=== PATIENT | female | born 1975 | race Caucasian/White ===

== ENCOUNTER → 2017-12-22 | Outpatient (CLI) | payer OTHER ==
--- NOTE | 2017-12-22 19:51 | Diagnostic Imaging Report ---
EXAMINATION: Digital mammogram bilateral screening. INDICATION: Screening. The current study was also evaluated with a Computer Aided Detection (CAD) system. 3-D tomosynthesis was also performed and reviewed. This is the patient's baseline study. At this time, there are no current complaints. FINDINGS: The fibroglandular tissue in both breasts is heterogeneously dense. This does limit the sensitivity of this exam. There is no primary or secondary sign of malignancy noted. IMPRESSION: 1. There is no evidence of malignancy. 2. The patient should have her annual bilateral screening mammogram on schedule in November of 2018. ACR BI-RADS Category 1: Negative. Result letter will be mailed to the patient. Note: At least 10% of breast cancer is not imaged by mammography. Dictated by: Dictated on workstation # [id number]
== END ==
LOC: RAD 07:38
PROVIDERS: ATTEND Nurse Practitioner
DX: Z12.31 Encounter for screening mammogram for malignant neoplasm of breast (principal)
CPT/HCPCS: 77067

== ENCOUNTER → 2020-07-14 | Outpatient (CLI) | payer OTHER ==
--- NOTE | 2020-07-14 12:34 | Diagnostic Imaging Report ---
INDICATION: Routine screening. COMPARISON: 12/22/2017. TECHNIQUE: 2D and 3D bilateral screening mammography was performed with CAD. FINDINGS: Scattered fibroglandular densities are identified bilaterally. No mass or malignant appearing microcalcifications are seen. The axillae are unremarkable. IMPRESSION: No mammographic features suspicious for malignancy are identified. ACR BI-RADS Category 1: Negative. Result letter will be mailed to the patient. Note: At least 10% of breast cancer is not imaged by mammography. Dictated by: Dictated on workstation # [id number]
== END ==
LOC: RAD 09:15
PROVIDERS: ATTEND Obstetrics & Gynecology
DX: Z12.31 Encounter for screening mammogram for malignant neoplasm of breast (principal)
CPT/HCPCS: 77063; 77067

== ENCOUNTER → 2021-08-17 | Outpatient (CLI) | payer OTHER ==
[~2021-08-17] MED LIST: CATHETER FLUSH 10 ML SYR IVP PRN
--- NOTE | 2021-08-17 09:41 | Diagnostic Imaging Report ---
INDICATION: Right upper quadrant pain for several years. Patient was administered 5.4 mCi technetium 99m Choletec intravenously and imaging over the abdomen was performed. At 60 minutes, the patient ingested Ensure and the gallbladder ejection fraction was calculated. There is homogeneous uptake of activity by the liver with prompt excretion of activity into the common duct with passage of activity into the gallbladder. There is also passage of activity into the small bowel. Gallbladder ejection fraction is low at 24%. Normal values are 35% or greater. IMPRESSION: 1. Patent cystic duct and common bile duct. 2. Low gallbladder ejection fraction of 24%. Dictated by: Dictated on workstation # [id number]
== END ==
LOC: CARD 06:42
PROVIDERS: ATTEND Surgery
DX: R10.11 Right upper quadrant pain (principal)
CPT/HCPCS: 78227; A9537